=== PATIENT | female | born 1950 | race Caucasian/White ===

== ENCOUNTER → 2018-10-26 | Outpatient (CLI) | payer MEDICARE, OTHER | LOC: M.LAB 04:40 | DX: Z01.812 Encounter for preprocedural laboratory examination (principal) ==

== ENCOUNTER 2019-06-07 11:00 | Inpatient (IN) | payer MEDICARE, OTHER ==
[~2019-06-07] VITALS: Ht 162.6 cm; Wt 75.3 kg
[2019-06-07 11:06] VITALS: BP 136/57
[2019-06-07] MEDS ORDERED: ZOCOR20 MG PO (11:10)
[2019-06-07] MEDS ORDERED: OMEPRAZOLE40 MG PO (11:10)
[2019-06-07] MEDS ORDERED: COZAAR 25 MG TA25 M1 PO (11:11)
[2019-06-07 11:27] LABS: ABSOLUTE BASOPHILS 0.1 thou/uL (0.0-0.2); ABSOLUTE EOSINOPHILS 0.2 thou/uL (0.0-0.7); ABSOLUTE LYMPHOCYTES 1.2 thou/uL (0.8-5.3); ABSOLUTE MONOCYTES 0.8 thou/uL (0.0-1.2); ABSOLUTE NEUTROPHILS 10.6 thou/uL (1.6-8.1); BASOPHILS 0.5 %; EOSINOPHILS 1.7 %; HEMATOCRIT 41.1 % (37.0-47.0); HEMOGLOBIN 13.7 gm/dL (12.0-15.0); MCH 27.4 pg (26.0-34.0); MCHC 33.4 g/dL (28.0-37.0); MCV 82.1 fL (80.0-100.0); MONOCYTES 6.1 %; MPV 9.3 fl. (7.2-11.1); NUCLEATED RBCS 0 /100WBC; PLATELET COUNT* 299 thou/uL (150-400); POLYS 82.7 %; RBC 5.01 mil/uL (4.20-5.00); WBC 12.8 thou/uL (4.0-11.0)
[2019-06-07 11:33] LABS: URINE BILIRUBIN NEGATIVE (Negative); URINE BLOOD 2+ (Negative); URINE CLARITY CLEAR; URINE COLOR YELLOW; URINE GLUCOSE-RANDOM NEGATIVE (Negative); URINE KETONES 1+ (Negative); URINE NITRITE-REFLEX NEGATIVE (Negative); URINE PROTEIN 2+ (Negative); URINE SPECIFIC GRAVITY >= 1.030 (1.005-1.030)
[2019-06-07 11:35] LABS: PCO2 32.4 mmHg (35.0-45.0); PO2 75.5 mmHg (75.0-100.0); pH 7.452 (7.340-7.450)
[2019-06-07 11:37] LABS: URINE LEUKOCYTES-REFLEX 2+ (Negative)
[2019-06-07 11:42] LABS: SQUAMOUS >10 Many /LPF (0-3)
[2019-06-07 11:43] LABS: URINE WBC-REFLEX 6-15 Few /HPF (0-5)
[2019-06-07 11:44] LABS: CRYSTALS None Seen /LPF (None Seen); HYALINE CASTS 0-3 Few /LPF (None Seen); MUCUS 0-3 Light strn/LPF (None Seen)
[2019-06-07 11:45] LABS: CALCIUM 9.7 mg/dL (8.5-10.1); CREATININE 0.9 mg/dL (0.6-1.3); POTASSIUM 3.5 mmol/L (3.5-5.1)
[2019-06-07 11:50] LABS: ALBUMIN 3.5 g/dL (3.4-5.0); TOTAL BILIRUBIN 0.9 mg/dL (<0.1-1.0)
[2019-06-07 12:42] LABS: APTT 30.8 Seconds (25.0-31.3); PROTIME 10.4 Seconds (9.20-11.50)
[2019-06-07 14:25] VITALS: BP 118/56
[2019-06-07 14:35] VITALS: BP 149/68
--- NOTE | 2019-06-07 15:12 | EKG ---
[place] [address] ELECTROCARDIOGRAM REPORT Name: REGINALD BAILON Room: [address] ADM IN M.R.#: [id number] Admission: 06/07/19 Attend Phys: Vy Mcdaniels DO Discharge: Date of : 46 Report #: [id number] THIS REPORT FOR: //name// [facility] ED Test Date: 2019-06-07 Test Time: 11:11:51 Pat Name: REGINALD BAILON Department: Room: [address] Gender: F Director Of Emergency Nursing: KF : 1950 Requested By: Tonya Cruz Order Number: [id number] [place] MD: Mookie Snaz Measurements Intervals [place] Rate: 79 P: 51 OR: 147 QRS: 3 QRSD: 89 T: 33 QT: 360 QTc: 413 Interpretive Statements Sinus rhythm Probable left atrial enlargement RSR' in V1 or V2, probably normal variant No previous ECG available for comparison Electronically Signed On 06-07-2019 15:12:33 CDT by Mookie Sanz [email or web address] <ELECTRONICALLY SIGNED> By: Mookie Sanz MD, [facility] 06/07/19 1512 1111 1111 Mookie Sanz MD, FAC /EPI
--- NOTE | 2019-06-07 17:19 | NUR ---
PATIENT ARRIVED FROM ER THIS AFTERNOON. PATIENT SETTLED TO ROOM. HISTORY, ASSESSMENT AND VITALS COMPLETED AND DOCUMENTED. PATIENT HAS COMPLAINTS OF PAIN TO ABDOMEN, TREATED ADEQUATELY WITH MEDICATION. PATIENT IS UP AD MIRA. PATIENT DENIES ANY NEEDS AT THIS TIME. CALL LIGHT WITHIN REACH. WILL CONTINUE TO MONITOR.
[2019-06-07 20:30] VITALS: BP 143/69
[2019-06-08 04:14] LABS: HEMATOCRIT 36.9 % (37.0-47.0); HEMOGLOBIN 12.1 gm/dL (12.0-15.0); MCH 27.3 pg (26.0-34.0); MCHC 32.8 g/dL (28.0-37.0); MCV 83.2 fL (80.0-100.0); MPV 9.2 fl. (7.2-11.1); RBC 4.43 mil/uL (4.20-5.00); RDW-CV 14.4 % (10.5-14.5); WBC 10.7 thou/uL (4.0-11.0)
[2019-06-08 04:25] LABS: ALBUMIN 2.8 g/dL (3.4-5.0); CALCIUM 9.3 mg/dL (8.5-10.1); CREATININE 0.8 mg/dL (0.6-1.3); MAGNESIUM 2.1 mg/dL (1.8-2.4); PHOSPHORUS* 3.4 mg/dL (2.5-4.9); POTASSIUM 4.2 mmol/L (3.5-5.1); TOTAL BILIRUBIN 0.7 mg/dL (<0.1-1.0); TOTAL PROTEIN 6.8 g/dL (6.4-8.2)
--- NOTE | 2019-06-08 06:28 | NUR ---
PATIENT SLEPT MOST OF THE NIGHT. IV FLUIDS AND ANTIBIOTICS WERE GIVEN ORDERED. PATIENT HAD NO COMPLAINTS OF PAIN OR NAUSEA. WILL CONTINUE TO MONITOR.
[2019-06-08 07:42] VITALS: BP 130/60
--- NOTE | 2019-06-08 11:34 | NUR ---
SW met with pt to complete initial assessment, introduce self, and SW role. Pt alert, oriented, pleasant. Pt lives at home with and is independent with ADLs and mobility. Pt does not anticipate any needs at dc. SW to continue to follow.
[2019-06-08 16:00] VITALS: BP 150/62
--- NOTE | 2019-06-08 18:26 | NUR ---
PATIENT AMBULATING UP AD MIRA THROUGHOUT SHIFT. PATIENT AWAKE IN BED. NO SIGNS OF DISTRESS OBSERVED. ALL SAFETY MEASURES MAINTAINED. PATIENT DENIES FUTHER NEEDS AT THIS TIME. PATIENT REQUESTING DIET ADVACEMENT AT 1700. DR. RYDER NOTIFIED. NO NEW ORDERS RECEIVED.
[2019-06-08 21:00] VITALS: BP 165/68
[2019-06-09] VITALS (7 sets, daily range): BP systolic 106–166; BP diastolic 68–77
[2019-06-09 04:11] LABS: ABSOLUTE BASOPHILS 0.1 thou/uL (0.0-0.2); ABSOLUTE EOSINOPHILS 0.6 thou/uL (0.0-0.7); ABSOLUTE LYMPHOCYTES 1.3 thou/uL (0.8-5.3); ABSOLUTE MONOCYTES 0.7 thou/uL (0.0-1.2); ABSOLUTE NEUTROPHILS 4.3 thou/uL (1.6-8.1); BASOPHILS 1.1 %; EOSINOPHILS 8.2 %; HEMOGLOBIN 12.3 gm/dL (12.0-15.0); LYMPHOCYTES 18.9 %; MCH 27.5 pg (26.0-34.0); MCHC 33.1 g/dL (28.0-37.0); MPV 9.5 fl. (7.2-11.1); NUCLEATED RBCS 0 /100WBC; PLATELET COUNT* 265 thou/uL (150-400); POLYS 61.8 %; RBC 4.46 mil/uL (4.20-5.00); RDW-CV 14.2 % (10.5-14.5); WBC 6.9 thou/uL (4.0-11.0)
[2019-06-09 04:19] LABS: CALCIUM 9.4 mg/dL (8.5-10.1); CREATININE 0.8 mg/dL (0.6-1.3); MAGNESIUM 2.2 mg/dL (1.8-2.4); PHOSPHORUS* 2.8 mg/dL (2.5-4.9); POTASSIUM 3.3 mmol/L (3.5-5.1)
--- NOTE | 2019-06-09 05:38 | NUR ---
PATIENT SLEPT PART OF THE NIGHT. IV FLUIDS AND ANTIBIOITCS WERE GIVEN ORDERED. PATIENT HAD NO COMPLAINTS OF PAIN OR NAUSEA. PATIENT STATES SHE IS TIRED OF CLEAR LIQUIDS AND HOPES SHE GET MORE THAN THAT TODAY. WILL CONTINUE TO MONITOR.
--- NOTE | 2019-06-09 18:58 | NUR ---
PATIENT AWAKE IN BED. NO SIGNS OF DISTRESS OBSERVED. PATIENT TOLERATING DIET WELL. ALL SAFETY MEASURES MAINTAINED. PATIENT DENIES PAIN AND FURTHER NEEDS AT THIS TIME.
[2019-06-10 04:00] VITALS: BP 120/80
[2019-06-10 07:50] VITALS: BP 133/64
[2019-06-10 09:27] LABS: HEMATOCRIT 38.8 % (37.0-47.0); HEMOGLOBIN 12.8 gm/dL (12.0-15.0); MCH 26.9 pg (26.0-34.0); MCHC 32.9 g/dL (28.0-37.0); MCV 81.7 fL (80.0-100.0); MPV 8.9 fl. (7.2-11.1); RBC 4.75 mil/uL (4.20-5.00); RDW-CV 14.1 % (10.5-14.5); WBC 6.3 thou/uL (4.0-11.0)
[2019-06-10 09:32] LABS: CALCIUM 9.5 mg/dL (8.5-10.1); CREATININE 0.9 mg/dL (0.6-1.3); POTASSIUM 3.8 mmol/L (3.5-5.1)
[2019-06-10 13:21] VITALS: BP 133/64
[2019-06-10] MEDS ORDERED: AUGMENTIN 875-1 EACH PO (13:24)
[2019-06-10] MEDS ORDERED: OXYCODONE HCL 55 MG PO (13:25)
--- NOTE | 2019-06-10 13:57 | NUR ---
NO COMPLAINTS OF PAIN. PATIENT TOLERATING LIQUIDS AND SOFT LUNCH DIET. IVF AND SCHED ABX INFUSED. IV DC'D. PATIENT VERBALIZES UNDERSTANDING OF PAPERWORK AND SCRIPTS. PATIENT TAKEN OUT VIA WHEELCHAIR WITH ALL BELONGINGS.
== END 2019-06-10 13:58 | disposition home or self-care (01) | DRG 392 ==
LOC: M.ERS 11:00 → M.TBA-ER 12:54 → M.3W 12:54
PROVIDERS: Personal Emergency Response Attendant; Physician Assistant; ADMIT Surgery
DX: K57.20 Diverticulitis of large intestine with perforation and abscess without bleeding (principal); N39.0 Urinary tract infection, site not specified; I10 Essential (primary) hypertension; E78.00 Pure hypercholesterolemia, unspecified; K21.9 Gastro-esophageal reflux disease without esophagitis; Z90.710 Acquired absence of both cervix and uterus; Z79.899 Other long term (current) drug therapy

== ENCOUNTER → 2019-06-07 | Outpatient (CLI) | payer MEDICARE, OTHER ==
[~2019-06-07] MED LIST: COZAAR 25 MG TA25 M1 PO; OMEPRAZOLE40 MG PO; ZOCOR20 MG PO
== END ==
LOC: M.CT 07:55
DX: K57.32 Diverticulitis of large intestine without perforation or abscess without bleeding (principal); R91.8 Other nonspecific abnormal finding of lung field; I25.10 Atherosclerotic heart disease of native coronary artery without angina pectoris; I70.0 Atherosclerosis of aorta

== ENCOUNTER → 2020-07-01 | Outpatient (CLI) | payer MEDICARE, OTHER ==
[~2020-07-01] MED LIST changes: +AUGMENTIN 875-1 EACH PO; +OXYCODONE HCL 55 MG PO
== END ==
LOC: M.CT 07:35
PROVIDERS: ATTEND Internal Medicine
DX: R91.1 Solitary pulmonary nodule (principal)